=== PATIENT | male | born 1995 | race Caucasian/White ===

== ENCOUNTER 2018-04-04 10:07 | Emergency (ER) | payer SELFPAY ==
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
[2018-04-04 12:16] VITALS: BP 129/87
== END 2018-04-04 12:25 | disposition home or self-care (01) ==
LOC: ER 10:07
DX: S16.1XXA Strain of muscle, fascia and tendon at neck level, initial encounter (principal); S00.03XA Contusion of scalp, initial encounter; V89.2XXA Person injured in unspecified motor-vehicle accident, traffic, initial encounter; Y92.410 Unspecified street and highway as the place of occurrence of the external cause
CPT/HCPCS: 70450; 72125; 99283